=== PATIENT | female | born 1980 | race Caucasian/White ===

== ENCOUNTER 2016-04-22 10:35 | Outpatient (CLI) | payer OTHER | END 2016-04-22 10:36 | disposition home or self-care (01) | DX: Z00.00 Encounter for general adult medical examination without abnormal findings (principal); Z79.899 Other long term (current) drug therapy ==

== ENCOUNTER 2016-11-19 14:37 | Outpatient (CLI) | payer SELFPAY ==
[2016-11-19 19:13] LABS: BASOPHILS # (AUTO) 0.2 10^3/uL (0.0-0.1); BASOPHILS % (AUTO) 2.1 %; EOSINOPHILS # (AUTO) 0.1 10^3/uL (0.0-0.7); EOSINOPHILS % (AUTO) 0.8 %; HCT - HEMATOCRIT 38.5 % (37.0-47.0); HGB - HEMOGLOBIN 12.7 g/dL (12.0-16.0); LYMPHOCYTES # (AUTO) 3.3 10^3/uL (1.5-3.5); LYMPHOCYTES % (AUTO) 29.6 %; MEAN CORPUSCULAR HEMOGLOBIN 32.2 pg (27.0-31.0); MEAN CORPUSCULAR HGB CONC 33.1 g/dL (32.0-36.0); MEAN CORPUSCULAR VOLUME 97.3 fL (81.0-99.0); MEAN PLATELET VOLUME 8.5 fL (7.9-10.8); MONOCYTES # (AUTO) 0.5 10^3/uL (0.0-1.0); MONOCYTES % (AUTO) 4.5 %; NEUTROPHILS # (AUTO) 6.9 10^3/uL (1.5-6.6); NUCLEATED RED BLOOD CELLS AUTO 0.1 /100WBC; RED BLOOD COUNT 3.96 10^6/uL (4.20-5.40); RED CELL DISTRIBUTION WIDTH 12.5 % (12.0-15.0)
[2016-11-19 19:39] LABS: ALBUMIN/GLOBULIN RATIO 1.3 (1.0-2.2); BILIRUBIN,TOTAL 0.5 mg/dL (0.2-1.0); CALCIUM 8.7 mg/dL (8.5-10.3); CREATININE 0.6 mg/dL (0.4-1.0); POTASSIUM 3.4 mmol/L (3.5-5.0); TOTAL PROTEIN 7.2 g/dL (6.7-8.2)
== END 2016-11-19 14:38 | disposition home or self-care (01) ==
LOC: LAB.WCP 14:37
PROVIDERS: ATTEND Family Medicine
DX: Z79.899 Other long term (current) drug therapy (principal)
CPT/HCPCS: 36415; 80053; 80178; 85025

== ENCOUNTER 2016-12-12 08:13 | Outpatient (CLI) | payer OTHER ==
[2016-12-12 13:00] LABS: BASOPHILS % (AUTO) 0.6 %; EOSINOPHILS # (AUTO) 0.1 10^3/uL (0.0-0.7); EOSINOPHILS % (AUTO) 1.9 %; HCT - HEMATOCRIT 38.4 % (37.0-47.0); HGB - HEMOGLOBIN 12.7 g/dL (12.0-16.0); LYMPHOCYTES # (AUTO) 3.2 10^3/uL (1.5-3.5); LYMPHOCYTES % (AUTO) 47.7 %; MEAN CORPUSCULAR HEMOGLOBIN 32.1 pg (27.0-31.0); MEAN CORPUSCULAR HGB CONC 33.2 g/dL (32.0-36.0); MEAN CORPUSCULAR VOLUME 96.8 fL (81.0-99.0); MEAN PLATELET VOLUME 8.4 fL (7.9-10.8); MONOCYTES # (AUTO) 0.4 10^3/uL (0.0-1.0); MONOCYTES % (AUTO) 6.6 %; NEUTROPHILS # (AUTO) 2.9 10^3/uL (1.5-6.6); NEUTROPHILS % (AUTO) 43.2 %; RED BLOOD COUNT 3.96 10^6/uL (4.20-5.40); RED CELL DISTRIBUTION WIDTH 12.6 % (12.0-15.0); UNCORRECTED WHITE BLOOD COUNT 6.7 x10^3/uL; WHITE BLOOD COUNT 6.7 x10^3/uL (4.8-10.8)
== END 2016-12-12 08:14 | disposition home or self-care (01) ==
LOC: LAB.WCP 08:13
PROVIDERS: ATTEND Family Medicine
DX: D72.829 Elevated white blood cell count, unspecified (principal)
CPT/HCPCS: 36415; 85025

== ENCOUNTER 2017-02-26 08:00 | Outpatient (CLI) | payer OTHER ==
[2017-02-27 12:41] LABS: HIV AG/AB 4TH GEN NON-REACTIVE (NON-REACTIVE)
[2017-02-27 15:27] LABS: HEPATITIS C ANTIBODY NON-REACTIVE (NON-REACTIVE)
[2017-02-28 12:46] LABS: HSV 1 IGG TYPE SPECIFIC AB 23.9 index; HSV 2 IGG TYPE SPECIFIC AB 8.09 index
== END 2017-02-26 08:01 | disposition home or self-care (01) ==
LOC: LAB.WCP 08:00
PROVIDERS: ATTEND Family Medicine
DX: Z20.2 Contact with and (suspected) exposure to infections with a predominantly sexual mode of transmission (principal)
CPT/HCPCS: 36415; 81599; 86592; 86695; 86696; 86780; 86803; 87389

== ENCOUNTER 2017-02-27 14:38 | Outpatient (CLI) | payer OTHER ==
--- NOTE | 2017-02-27 16:03 | XRAY Report ---
DATE OF SERVICE: 02/27/2017 TWO VIEW CHEST: 02/27/2017 CLINICAL INDICATION: Cough. FINDINGS: Frontal and lateral views of the chest demonstrate a normal cardiac silhouette. The lungs are clear. No effusion or pneumothorax is present. IMPRESSION: NORMAL CHEST. TD: 02/27/2017 17:01
== END 2017-02-27 14:39 | disposition home or self-care (01) ==
LOC: DI 14:38
PROVIDERS: ATTEND Family Medicine
DX: R05 Cough (principal)
CPT/HCPCS: 71046

== ENCOUNTER 2017-08-21 08:29 | Outpatient (CLI) | payer OTHER ==
[2017-08-21 12:21] LABS: BASOPHILS # (AUTO) 0.1 10^3/uL (0.0-0.1); BASOPHILS % (AUTO) 0.8 %; EOSINOPHILS # (AUTO) 0.2 10^3/uL (0.0-0.7); EOSINOPHILS % (AUTO) 2.4 %; HGB - HEMOGLOBIN 13.1 g/dL (12.0-16.0); LYMPHOCYTES # (AUTO) 2.5 10^3/uL (1.5-3.5); LYMPHOCYTES % (AUTO) 34.9 %; MEAN CORPUSCULAR HEMOGLOBIN 32.8 pg (27.0-31.0); MEAN CORPUSCULAR HGB CONC 32.9 g/dL (32.0-36.0); MEAN CORPUSCULAR VOLUME 99.8 fL (81.0-99.0); MEAN PLATELET VOLUME 8.4 fL (7.9-10.8); MONOCYTES # (AUTO) 0.6 10^3/uL (0.0-1.0); MONOCYTES % (AUTO) 8.2 %; NEUTROPHILS # (AUTO) 3.8 10^3/uL (1.5-6.6); NEUTROPHILS % (AUTO) 53.7 %; PLT - PLATELET COUNT 326 10^3/uL (130-450); RED BLOOD COUNT 3.99 10^6/uL (4.20-5.40); WHITE BLOOD COUNT 7.1 x10^3/uL (4.8-10.8)
[2017-08-21 12:44] LABS: LITHIUM 0.28 mmol/L
[2017-08-21 12:55] LABS: ALBUMIN 3.9 g/dL (3.2-5.5); ALBUMIN/GLOBULIN RATIO 1.1 (1.0-2.2); ALKALINE PHOSPHATASE 45 IU/L (42-121); ALT ALANINE AMINOTRANSFERASE 17 IU/L (10-60); AST ASPARTATE AMINOTRANSFERASE 17 IU/L (10-42); BUN - BLOOD UREA NITROGEN 10 mg/dL (6-20); CARBON DIOXIDE - CO2 26 mmol/L (21-32); CHLORIDE 105 mmol/L (101-111); CHOL/HDL RATIO 1.6 (<4.4); CHOLESTEROL 149 mg/dL; CREATININE 0.5 mg/dL (0.4-1.0); GFR - MDRD 139 (>89); GLUCOSE 87 mg/dL (70-100); HDL CHOLESTEROL 91 mg/dL; LDL CHOLESTEROL,CALCULATED 49 mg/dL; LDL/HDL RATIO 0.5 (<4.4); SODIUM 137 mmol/L (135-145); TOTAL PROTEIN 7.3 g/dL (6.7-8.2); VLDL CHOLESTEROL 9 mg/dL
[2017-08-21 13:06] LABS: HEMOGLOBIN A1C 0.42 g/dL; HEMOGLOBIN A1C % 4.9 % (4.6-6.2)
== END 2017-08-21 08:30 | disposition home or self-care (01) ==
LOC: LAB.WCP 08:29
PROVIDERS: ATTEND Family Medicine
DX: Z00.00 Encounter for general adult medical examination without abnormal findings (principal); Z79.899 Other long term (current) drug therapy
CPT/HCPCS: 36415; 80053; 80061; 80178; 83036; 83721; 84443; 85025

== ENCOUNTER 2017-12-15 14:40 | Outpatient (CLI) | payer OTHER ==
[2017-12-15 18:45] LABS: BASOPHILS # (AUTO) 0.1 10^3/uL (0.0-0.1); BASOPHILS % (AUTO) 0.5 %; EOSINOPHILS # (AUTO) 0.1 10^3/uL (0.0-0.7); EOSINOPHILS % (AUTO) 0.6 %; LYMPHOCYTES # (AUTO) 2.9 10^3/uL (1.5-3.5); LYMPHOCYTES % (AUTO) 30.2 %; MEAN CORPUSCULAR HEMOGLOBIN 32.5 pg (27.0-31.0); MEAN CORPUSCULAR HGB CONC 33.3 g/dL (32.0-36.0); MEAN CORPUSCULAR VOLUME 97.5 fL (81.0-99.0); MEAN PLATELET VOLUME 8.5 fL (7.9-10.8); MONOCYTES # (AUTO) 0.7 10^3/uL (0.0-1.0); MONOCYTES % (AUTO) 7.4 %; NEUTROPHILS # (AUTO) 5.9 10^3/uL (1.5-6.6); NEUTROPHILS % (AUTO) 61.3 %; PLT - PLATELET COUNT 348 10^3/uL (130-450); RED CELL DISTRIBUTION WIDTH 12.5 % (12.0-15.0); WHITE BLOOD COUNT 9.7 x10^3/uL (4.8-10.8)
[2017-12-15 18:53] LABS: ALBUMIN 4.2 g/dL (3.2-5.5); ALBUMIN/GLOBULIN RATIO 1.2 (1.0-2.2); BILIRUBIN,TOTAL 0.8 mg/dL (0.2-1.0); CALCIUM 8.8 mg/dL (8.5-10.3); CREATININE 0.5 mg/dL (0.4-1.0); TOTAL PROTEIN 7.6 g/dL (6.7-8.2)
== END 2017-12-15 14:41 | disposition home or self-care (01) ==
LOC: LAB.WCP 14:40
PROVIDERS: ATTEND Family Medicine
DX: Z79.899 Other long term (current) drug therapy (principal)
CPT/HCPCS: 36415; 80053; 80178; 85025

== ENCOUNTER 2018-02-25 09:13 | Outpatient (CLI) | payer OTHER ==
[2018-02-25 13:25] LABS: LITHIUM 0.55 mmol/L
== END 2018-02-25 23:59 | disposition home or self-care (01) ==
LOC: LAB.WCP 09:13
PROVIDERS: ATTEND Nurse Practitioner Family
DX: E31.9 Polyglandular dysfunction, unspecified (principal); F31.9 Bipolar disorder, unspecified
CPT/HCPCS: 36415; 80178

== ENCOUNTER 2018-05-27 11:25 | Outpatient (CLI) | payer OTHER ==
[2018-05-27 19:30] LABS: LITHIUM 0.77 mmol/L
== END 2018-05-27 11:26 | disposition home or self-care (01) ==
LOC: LAB.WCP 11:25
PROVIDERS: ATTEND Family Medicine
DX: Z79.899 Other long term (current) drug therapy (principal)
CPT/HCPCS: 36415; 80178

== ENCOUNTER 2018-06-03 21:56 | Outpatient (CLI) | payer OTHER ==
--- NOTE | 2018-06-04 01:31 | Ultrasound Report ---
Reason: PELVIC PAIN Procedure Date: 06/03/2018 Accession Number: [id number] / [id number] Procedure: US - Pelvic w/Transvaginal CPT Code: FULL RESULT: EXAM: PELVIC ULTRASOUND EXAM DATE: 06/03/2018 10:22 PM. CLINICAL HISTORY: PELVIC PAIN. COMPARISON: None. TECHNIQUE: Realtime transabdominal pelvic scan performed to identify the uterus and adnexa and as an overview of other pelvic structures, followed by transvaginal scan to provide greater detail of the uterus and adnexa, with static image documentation. FINDINGS: Uterus: 6.3 x 3.6 x 2.7 cm, volume 31.6 cc. Anteverted position. Normal overall size and echotexture. Masses: None. Endometrium: 4 mm. No focal endometrial abnormalities. Cervix: Unremarkable. Right Ovary: 2.2 x 1.3 x 1.1 cm, volume 1.6 cc. Normal echotexture and blood flow. Left Ovary: 1.4 x 1.6 x 1.6 cm, volume 1.9 cc. Normal echotexture and blood flow. Free Fluid: None. Other: None. IMPRESSION: Unremarkable pelvic ultrasound. RADIA
== END 2018-06-03 21:57 | disposition home or self-care (01) ==
LOC: DI 21:56
PROVIDERS: ATTEND Family Medicine
DX: R10.2 Pelvic and perineal pain (principal)
CPT/HCPCS: 76830; 76856

== ENCOUNTER 2018-10-22 16:14 | Outpatient (CLI) | payer OTHER ==
[2018-10-22 21:27] LABS: CANDIDA GROUP DNA NEGATIVE (NEGATIVE); CANDIDA KRUSEI DNA NEGATIVE (NEGATIVE); TRICHOMONAS VAGINALIS DNA NEGATIVE (NEGATIVE)
[2018-10-22 22:17] LABS: TRICHOMONAS VAGINALIS DNA NEGATIVE (NEGATIVE)
== END 2018-10-22 23:59 | disposition home or self-care (01) ==
LOC: LAB.R 16:14
PROVIDERS: ATTEND Obstetrics & Gynecology
DX: B37.3 Candidiasis of vulva and vagina (principal); N89.9 Noninflammatory disorder of vagina, unspecified
CPT/HCPCS: 87491; 87591; 87661; 87801

== ENCOUNTER 2018-10-28 08:00 | Outpatient (CLI) | payer OTHER ==
[2018-10-28 12:43] LABS: LITHIUM 0.43 mmol/L
== END 2018-10-28 23:59 | disposition home or self-care (01) ==
LOC: LAB.WCP 08:00
PROVIDERS: ATTEND Physician Assistant Medical
DX: F31.9 Bipolar disorder, unspecified (principal); Z79.899 Other long term (current) drug therapy
CPT/HCPCS: 36415; 80178

== ENCOUNTER 2019-05-06 16:34 | Outpatient (CLI) | payer OTHER | END 2019-05-06 16:35 | disposition home or self-care (01) | LOC: COV 16:34 | PROVIDERS: ATTEND Family Medicine | DX: R05 Cough (principal); R50.9 Fever, unspecified | CPT/HCPCS: 81599 ==

== ENCOUNTER 2019-06-02 08:00 | Outpatient (CLI) | payer OTHER ==
[2019-06-02 16:56] LABS: LITHIUM 0.38 mmol/L
== END 2019-06-02 23:59 | disposition home or self-care (01) ==
LOC: LAB.WCP 08:00
PROVIDERS: ATTEND Physician Assistant Medical
DX: F31.12 Bipolar disorder, current episode manic without psychotic features, moderate (principal)
CPT/HCPCS: 36415; 80178

== ENCOUNTER 2019-07-18 08:00 | Outpatient (CLI) | payer OTHER ==
[2019-07-18 17:55] LABS: LITHIUM 0.84 mmol/L
== END 2019-07-18 23:59 | disposition home or self-care (01) ==
LOC: LAB.WCP 08:00
PROVIDERS: ATTEND Nurse Practitioner Family
DX: F31.13 Bipolar disorder, current episode manic without psychotic features, severe (principal)
CPT/HCPCS: 36415; 80178

== ENCOUNTER 2019-08-25 14:22 | Outpatient (CLI) | payer OTHER ==
[2019-08-25] MEDS ORDERED: GADOBUTROL 7.5 MMOL/7.5 ML VIAL ONE (15:22)
[2019-08-25] MEDS ORDERED: GADOBUTROL 7.5 MMOL/7.5 ML VIAL IVP ONE (16:05)
--- NOTE | 2019-08-25 16:50 | MRI Report ---
PROCEDURE: Brain W/WO INDICATIONS: MULTIPLE SCLEROSIS CONTRAST: IV CONTRAST: Gadavist ml: 6 TECHNIQUE: Noncontrast axial T1 spin echo, axial T2 fast spin echo, sagittal and axial FLAIR, coronal T2 fast sp in echo, axial gradient echo, axial diffusion and ADC through the brain. After the administration of contrast, axial and coronal T1 spin echo with fat saturation through the brain. COMPARISON: None. FINDINGS: Image quality: Excellent. CSF spaces: Basal cisterns are patent. No extra-axial fluid collections. Ventricles are normal in size and shape. Brain: No midline shift. No intracranial bleeds or masses. No abnormal intracranial enhancement. There is cerebral volume loss for age. There is a mild degree of high FLAIR signal foci within the c allosal, pericallosal, periventricular, and subcortical white matter, in a configuration consistent w ith multiple sclerosis. The brainstem appears normal. Diffusion-weighted images demonstrate no acute ischemic insults. No chronic ischemic insults. Normal intravascular flow voids are present. Skull and face: Calvarial marrow is normal in signal. Orbits appear normal. Sinuses: Sinuses and mastoids appear clear. IMPRESSION: Mild degree of white matter disease, compatible with multiple sclerosis. Reviewed by: Corinne Graves MD on 08/25/2019 4:48 PM PDT Approved by: Corinne Graves MD on 08/25/2019 4:48 PM PDT Station ID: [id number]
== END 2019-08-25 14:23 | disposition home or self-care (01) ==
LOC: DI 14:22
PROVIDERS: ATTEND Physician Assistant Medical
DX: G35 Multiple sclerosis (principal)
CPT/HCPCS: 70553; A9585

== ENCOUNTER 2019-10-01 15:42 | Outpatient (CLI) | payer OTHER ==
[2019-10-01] MEDS ORDERED: GADOBUTROL 10 MMOL/10 ML VIAL IVP ONE (17:55)
[2019-10-01] MEDS ORDERED: GADOBUTROL 10 MMOL/10 ML VIAL ONE (17:57)
--- NOTE | 2019-10-03 08:57 | MRI Report ---
PROCEDURE: Thoracic Spine W/WO INDICATIONS: Left lower extremity weakness; multiple sclerosis CONTRAST: IV CONTRAST: Gadavist ml: 7 TECHNIQUE: Noncontrast sagittal T1 spin echo and T2 fast spin echo, sagittal STIR, axial T1 and T2 fast spin ech o through the thoracic spine. After the administration of contrast, axial and sagittal T1 spin echo with fat saturation through the thoracic spine. COMPARISON: None. FINDINGS: Image quality: Excellent. Alignment and curvature: Is normal thoracic vertebral body height and alignment. Marrow: No suspicious focal marrow signal abnormality or bone marrow edema. No abnormal marrow space enhancement. Spinal cord: No focal cord signal abnormality is demonstrated. The thoracic cord is normal in appeara nce. There is no syrinx. Normal position and appearance of the conus. Regional soft tissues: Prevertebral and paraspinous soft tissues are unremarkable. Miscellaneous: No spinal canal or neural foraminal stenosis at any level. No significant degenerative changes of the intervertebral discs or facets. IMPRESSION: Unremarkable MRI of the thoracic spine. No focal cord signal abnormality to indicate a demyelinating lesion. Reviewed by: Williams Pedraza MD on 10/03/2019 8:55 AM PDT Approved by: Williams Pedraza MD on 10/03/2019 8:55 AM PDT Station ID: [id number]
--- NOTE | 2019-10-03 09:04 | MRI Report ---
PROCEDURE: Cervical Spine W/WO INDICATIONS: WEAKNESS OF LEFT LOWER EXTREMITY, MULTIPLE SCLEROSIS CONTRAST: IV CONTRAST: Gadavist ml: 7 TECHNIQUE: Noncontrast sagittal T1 spin echo and T2 fast spin echo, sagittal STIR, sagittal PD fast spin echo, f oraminal oblique sagittal T2 fast spin echo, axial gradient echo or T2 fast spin echo through the cer vical spine. After the administration of contrast, sagittal and axial T1 spin echo with fat saturati on through the cervical spine. COMPARISON: None. FINDINGS: Image quality: Excellent. Alignment and curvature: Straightening of the usual cervical lordosis likely a function of degenerati ve change. Otherwise normal alignment. Normal vertebral body height. Marrow: Discogenic marrow edema at the opposing C5-C6 endplates. No suspicious focal marrow signal ab normality. Spinal cord: There are two small foci of increased T2 signal intensity within the cervical cord paren chyma, which would be consistent with chronic demyelinating plaques. These images are seen on series 602, image 18 at the inferior C4 level and image 28 at the inferior C2 level. There is no additional convincing cord signal abnormality. No abnormal enhancement of the cervical cord. Normal volume of th e cord parenchyma. Regional soft tissues: Prevertebral and paraspinous soft tissues are unremarkable. No suspicious enha ncement. IMPRESSION: Two small (2-3 mm) foci of increased T2 signal intensity within the cervical cord, neither which demo nstrate enhancement. These findings would be consistent with chronic demyelinating plaques. Correlati on with any prior studies could be helpful (or the reports) to potentially ascertain if these represe nt new lesions. Reviewed by: Williams Pedraza MD on 10/03/2019 9:03 AM PDT Approved by: Williams Pedraza MD on 10/03/2019 9:03 AM PDT Station ID: [id number]
== END 2019-10-01 15:43 | disposition home or self-care (01) ==
LOC: DI 15:42
PROVIDERS: ATTEND Psychiatry & Neurology Neurology
DX: R93.89 Abnormal findings on diagnostic imaging of other specified body structures (principal)
CPT/HCPCS: 72156; 72157; A9585

== ENCOUNTER 2021-05-06 08:20 | Outpatient (CLI) | payer MEDICAID ==
[2021-05-06 12:25] LABS: LITHIUM 0.79 mmol/L
== END 2021-05-06 08:21 | disposition home or self-care (01) ==
LOC: LAB.N 08:20
PROVIDERS: ATTEND Family Medicine
DX: F31.12 Bipolar disorder, current episode manic without psychotic features, moderate (principal)
CPT/HCPCS: 36415; 80178

== ENCOUNTER 2022-04-15 08:04 | Outpatient (CLI) | payer MEDICAID ==
[2022-04-15 12:44] LABS: BASOPHILS # (AUTO) 0.1 10^3/uL (0.0-0.1); BASOPHILS % (AUTO) 0.9 %; EOSINOPHILS # (AUTO) 0.1 10^3/uL (0.0-0.7); EOSINOPHILS % (AUTO) 1.4 %; HCT - HEMATOCRIT 39.8 % (37.0-47.0); HGB - HEMOGLOBIN 12.6 g/dL (12.0-16.0); LYMPHOCYTES # (AUTO) 3.4 10^3/uL (1.5-3.5); LYMPHOCYTES % (AUTO) 36.9 %; MEAN CORPUSCULAR HEMOGLOBIN 32.1 pg (27.0-31.0); MEAN CORPUSCULAR HGB CONC 31.7 g/dL (32.0-36.0); MEAN CORPUSCULAR VOLUME 101.5 fL (81.0-99.0); MEAN PLATELET VOLUME 10.4 fL (7.9-10.8); MONOCYTES # (AUTO) 0.5 10^3/uL (0.0-1.0); MONOCYTES % (AUTO) 5.4 %; NEUTROPHILS # (AUTO) 5.1 10^3/uL (1.5-6.6); NEUTROPHILS % (AUTO) 55.2 %; PLT - PLATELET COUNT 383 10^3/uL (130-450); RED BLOOD COUNT 3.92 10^6/uL (4.20-5.40); RED CELL DISTRIBUTION WIDTH 11.5 % (12.0-15.0); WHITE BLOOD COUNT 9.2 x10^3/uL (4.8-10.8)
[2022-04-15 12:50] LABS: ALBUMIN 4.3 g/dL (3.2-5.5); ALBUMIN/GLOBULIN RATIO 1.3 (1.0-2.2); ALKALINE PHOSPHATASE 44 IU/L (42-121); ALT ALANINE AMINOTRANSFERASE 14 IU/L (10-60); AST ASPARTATE AMINOTRANSFERASE 15 IU/L (10-42); BILIRUBIN,TOTAL 0.4 mg/dL (0.2-1.0); BUN - BLOOD UREA NITROGEN 20 mg/dL (6-20); CALCIUM 9.4 mg/dL (8.5-10.3); CARBON DIOXIDE - CO2 25 mmol/L (21-32); CHLORIDE 101 mmol/L (101-111); CHOL/HDL RATIO 2.9 (<4.4); CHOLESTEROL 166 mg/dL; CREATININE 0.7 mg/dL (0.4-1.0); GFR - MDRD 92 (>89); GLUCOSE 95 mg/dL (70-100); HDL CHOLESTEROL 58 mg/dL; LDL CHOLESTEROL,CALCULATED 69 mg/dL; LDL/HDL RATIO 1.2 (<4.4); POTASSIUM 4.2 mmol/L (3.5-5.0); SODIUM 134 mmol/L (135-145); TOTAL PROTEIN 7.7 g/dL (6.7-8.2); TRIGLYCERIDES 193 mg/dL; VLDL CHOLESTEROL 39 mg/dL
[2022-04-15 12:57] LABS: LITHIUM 1.05 mmol/L
[2022-04-15 13:01] LABS: THYROID STIMULATING HORMONE 0.43 uIU/mL (0.34-5.60)
--- NOTE | 2022-04-16 12:29 | Mammography Report ---
BILATERAL DIGITAL SCREENING MAMMOGRAM 3D/2D: 04/15/2022 CLINICAL: Routine screening. Comparison is made to exam dated: 07/03/2015 mammogram - [facility]. Both breasts are heterogeneously dense, which may obscure small masses (category c / 51-75% glandular tissue). No significant masses, calcifications, or other findings are seen in either breast. There has been no significant interval change. IMPRESSION: NEGATIVE There is no mammographic evidence of malignancy. A 1 year screening mammogram is recommended. Based on Tyrer-Cuzick model (a risk assessment model), the patient's lifetime risk is 21.3% and her 1 0 year risk is 3.1%. If a patient has an elevated risk, a more comprehensive evaluation should be con sidered and/or a referral to a genetic counselor. The [employer] [employer], [employer], and NCCN Guidelines advise the consideration of Breast MRI as an adjunct to screening mammog rajat in patients whose "Lifetime risk to develop breast cancer" is 20% or higher. This exam was interpreted at Station ID: [id number]. NOTE: For mammograms, a report in lay terms will be sent to the patient. Approximately 15% of breast malignancies will not be visualized mammographically. In the management of a palpable breast mass, a negative mammogram must not discourage biopsy of a clinically suspicious lesion. Electronically Signed By: Biju torrez/raman:04/15/2022 13:12:34 letter sent: No_Letter ACR BI-RADS Category 1: Negative 3341F PARENCHYMAL PATTERN: (D) - The breast(s) demonstrate(s) heterogeneously dense fibroglandular parjanesy jerry. BI-RADS CATEGORY: (1) - 1 RECOMMENDATION: (ANNUAL) - Recommend routine annual screening mammography. [id number] 1 year screening LATERALITY: (B)
== END 2022-04-15 08:05 | disposition home or self-care (01) ==
LOC: DI.N 08:04
DX: Z12.31 Encounter for screening mammogram for malignant neoplasm of breast (principal); Z00.00 Encounter for general adult medical examination without abnormal findings; F31.12 Bipolar disorder, current episode manic without psychotic features, moderate
CPT/HCPCS: 36415; 80053; 80061; 80178; 83721; 84443; 85025

== ENCOUNTER 2022-04-15 08:08 | Outpatient (CLI) | payer MEDICAID | END 2022-04-15 08:09 | disposition home or self-care (01) | LOC: LAB.N 08:08 | PROVIDERS: ATTEND Physician Assistant Medical | DX: Z53.9 Procedure and treatment not carried out, unspecified reason (principal) ==

== ENCOUNTER 2023-06-02 07:51 | Outpatient (CLI) | payer MEDICAID ==
[2023-06-02 11:55] LABS: BASOPHILS % (AUTO) 0.5 %; EOSINOPHILS # (AUTO) 0.2 10^3/uL (0.0-0.7); EOSINOPHILS % (AUTO) 1.9 %; HCT - HEMATOCRIT 42.9 % (37.0-47.0); HGB - HEMOGLOBIN 13.4 g/dL (12.0-16.0); LYMPHOCYTES # (AUTO) 3.4 10^3/uL (1.5-3.5); LYMPHOCYTES % (AUTO) 42.9 %; MEAN CORPUSCULAR HEMOGLOBIN 32.9 pg (27.0-31.0); MEAN CORPUSCULAR HGB CONC 31.2 g/dL (32.0-36.0); MEAN CORPUSCULAR VOLUME 105.4 fL (81.0-99.0); MEAN PLATELET VOLUME 9.8 fL (7.9-10.8); MONOCYTES # (AUTO) 0.5 10^3/uL (0.0-1.0); MONOCYTES % (AUTO) 6.4 %; NEUTROPHILS # (AUTO) 3.8 10^3/uL (1.5-6.6); PLT - PLATELET COUNT 474 10^3/uL (130-450); RED BLOOD COUNT 4.07 10^6/uL (4.20-5.40); RED CELL DISTRIBUTION WIDTH 12.3 % (12.0-15.0); WHITE BLOOD COUNT 7.9 x10^3/uL (4.8-10.8)
[2023-06-02 12:18] LABS: ALBUMIN 4.8 g/dL (3.2-5.5); ALBUMIN/GLOBULIN RATIO 1.5 (1.0-2.2); ALKALINE PHOSPHATASE 45 IU/L (42-121); ALT ALANINE AMINOTRANSFERASE 13 IU/L (10-60); AST ASPARTATE AMINOTRANSFERASE 13 IU/L (10-42); BILIRUBIN,TOTAL 0.3 mg/dL (0.2-1.0); BUN - BLOOD UREA NITROGEN 15 mg/dL (6-20); CARBON DIOXIDE - CO2 27 mmol/L (21-32); CHLORIDE 106 mmol/L (101-111); CHOL/HDL RATIO 2.5 (<4.4); CHOLESTEROL 187 mg/dL; CREATININE 0.6 mg/dL (0.6-1.3); GFR - MDRD 110 (>89); GLUCOSE 82 mg/dL (74-104); HDL CHOLESTEROL 75 mg/dL; LDL CHOLESTEROL,CALCULATED 95 mg/dL; LDL/HDL RATIO 1.3 (<4.4); POTASSIUM 4.2 mmol/L (3.5-4.5); SODIUM 137 mmol/L (135-145); TOTAL PROTEIN 8.1 g/dL (6.4-8.9); TRIGLYCERIDES 87 mg/dL (48-352); VLDL CHOLESTEROL 17 mg/dL
[2023-06-02 12:20] LABS: ESTIMATED AVERAGE GLUCOSE 82 mg/dL (70-100); HEMOGLOBIN A1c% 4.5 % (4.27-6.07)
[2023-06-02 12:25] LABS: THYROID STIMULATING HORMONE 0.42 uIU/mL (0.34-5.60)
== END 2023-06-02 07:52 | disposition home or self-care (01) ==
LOC: LAB.N 07:51
PROVIDERS: ATTEND Nurse Practitioner
DX: F31.12 Bipolar disorder, current episode manic without psychotic features, moderate (principal); G35 Multiple sclerosis
CPT/HCPCS: 36415; 80053; 80061; 80178; 83036; 83721; 84443; 85025

== ENCOUNTER 2023-07-07 08:25 | Outpatient (CLI) | payer MEDICAID ==
--- NOTE | 2023-07-08 09:14 | Mammography Report ---
BILATERAL DIGITAL SCREENING MAMMOGRAM 3D/2D: 07/07/2023 CLINICAL: Routine screening. Comparison is made to exams dated: 04/15/2022 mammogram and 07/03/2015 mammogram - [facility]. Both breasts are extremely dense, which lowers the sensitivity of mammography (category d />75% gland ular tissue). There is a possible asymmetry in the right breast posterior depth central to the nipple seen on the c raniocaudal view only. No other significant masses, calcifications, or other findings are seen in either breast. IMPRESSION: INCOMPLETE: NEEDS ADDITIONAL IMAGING EVALUATION The possible asymmetry in the right breast is indeterminate. Additional views with possible ultrasou nd are recommended. Based on Tyrer-Cuzick model (a risk assessment model), the patient's lifetime risk is 31.2% and her 1 0 year risk is 5.5%. If a patient has an elevated risk, a more comprehensive evaluation should be con sidered and/or a referral to a genetic counselor. The [employer] [employer], [employer], and NCCN Guidelines advise the consideration of Breast MRI as an adjunct to screening mammog rajat in patients whose "Lifetime risk to develop breast cancer" is 20% or higher. This exam was interpreted at Station ID: [id number]. NOTE: For mammograms, a report in lay terms will be sent to the patient. Approximately 15% of breast malignancies will not be visualized mammographically. In the management of a palpable breast mass, a negative mammogram must not discourage biopsy of a clinically suspicious lesion. Electronically Signed By: Varghese johnson/raman:07/07/2023 15:11:58 ACR BI-RADS Category 0: Incomplete 3340F PARENCHYMAL PATTERN: (VD) - The breast(s) demonstrate(s) extremely dense parenchyma, limiting the sen sitivity of mammography. BI-RADS CATEGORY: (0) - 0 Mammo and [place] [id number] Immediate follow-up LATERALITY: (R)
== END 2023-07-07 08:26 | disposition home or self-care (01) ==
LOC: DI.N 08:25
DX: Z12.31 Encounter for screening mammogram for malignant neoplasm of breast (principal); R92.343 Mammographic extreme density, bilateral breasts; R92.8 Other abnormal and inconclusive findings on diagnostic imaging of breast

== ENCOUNTER 2023-10-29 07:32 | Outpatient (CLI) | payer MEDICAID ==
[2023-10-29 12:26] LABS: ALBUMIN 4.8 g/dL (3.2-5.5); ALBUMIN/GLOBULIN RATIO 1.8 (1.0-2.2); BILIRUBIN,TOTAL 0.4 mg/dL (0.2-1.0); CALCIUM 9.7 mg/dL (8.5-10.3); CREATININE 0.6 mg/dL (0.6-1.3); TOTAL PROTEIN 7.4 g/dL (6.4-8.9)
[2023-10-29 12:39] LABS: THYROID STIMULATING HORMONE 0.8 uIU/mL (0.34-5.60)
== END 2023-10-29 07:33 | disposition home or self-care (01) ==
LOC: LAB.N 07:32
PROVIDERS: ATTEND Nurse Practitioner
DX: Z79.899 Other long term (current) drug therapy (principal)
CPT/HCPCS: 36415; 80053; 80178; 84443